=== PATIENT | male | born 1955 | race Caucasian/White ===

== ENCOUNTER 2020-09-13 11:28 | Outpatient (CLI) | payer OTHER ==
--- NOTE | 2020-09-13 11:57 | XRAY Report ---
PROCEDURE: Chest 2 View X-Ray INDICATIONS: Cough TECHNIQUE: 2 view(s) of the chest. COMPARISON: 11/04/2014 CT angiogram chest FINDINGS: Surgical changes and devices: None. Lungs and pleura: No pleural effusions or pneumothorax. Lungs are clear. Mediastinum: Mediastinal contours are normal. Heart size is normal. Bones and chest wall: No suspicious bony abnormalities. Soft tissues appear unremarkable. IMPRESSION: No acute cardiopulmonary process demonstrated radiographically. Reviewed by: Gavin Silver MD on 09/13/2020 11:56 AM PDT Approved by: Gavin Silver MD on 09/13/2020 11:56 AM PDT Station ID: [id number]
== END 2020-09-13 11:29 | disposition home or self-care (01) ==
LOC: DI.N 11:28
PROVIDERS: ATTEND Physician Assistant
DX: R05 Cough (principal); R07.9 Chest pain, unspecified; R06.02 Shortness of breath; Z87.891 Personal history of nicotine dependence

== ENCOUNTER 2021-09-22 10:41 | Outpatient (CLI) | payer MEDICARE ==
--- NOTE | 2021-09-22 13:42 | Ultrasound Report ---
PROCEDURE: Aorta Screening INDICATIONS: SCREENING FOR AAA TECHNIQUE: Real time scanning was performed of the aorta and iliac arteries, with image documentatio n. COMPARISON: CT abdominal/pelvic angiogram, 11/04/2014. FINDINGS: Aorta: Proximal aortic diameter measures 2.9 x 2.9 cm. Mid-aorta measures 2.1 x 2.2 cm. Distal aor tic diameter is 2.0 x 2.1 cm. There are calcified plaques in the abdominal aorta. Iliac arteries: Right common iliac artery measures 1.3 x 1.1 cm. Left common iliac artery measures 1.3 x 1.3 cm. IMPRESSION: Mild abdominal aortic ectasia. A follow-up ultrasound is recommended in 5 years. Reviewed by: Isaac Smith MD on 09/22/2021 1:40 PM PDT Approved by: Isaac Smith MD on 09/22/2021 1:40 PM PDT Station ID: [id number]
== END 2021-09-22 10:42 | disposition home or self-care (01) ==
LOC: DI 10:41
PROVIDERS: ATTEND Physician Assistant
DX: Z13.6 Encounter for screening for cardiovascular disorders (principal); I77.811 Abdominal aortic ectasia

== ENCOUNTER 2022-03-30 11:00 | Outpatient (CLI) | payer MEDICARE | END 2022-03-30 23:59 | disposition short-term general hospital (02) | LOC: EMS 11:00 | DX: R06.02 Shortness of breath (principal) | CPT/HCPCS: A0425; A0427 ==

== ENCOUNTER 2022-05-01 22:00 | Outpatient (CLI) | payer MEDICARE | END 2022-05-01 23:59 | disposition short-term general hospital (02) | LOC: EMS 22:00 | DX: R55 Syncope and collapse (principal); R11.2 Nausea with vomiting, unspecified; I95.9 Hypotension, unspecified | CPT/HCPCS: A0425; A0427 ==

== ENCOUNTER 2022-07-22 11:01 | Outpatient (CLI) | payer MEDICARE ==
--- NOTE | 2022-07-22 13:30 | XRAY Report ---
PROCEDURE: Chest 2 View X-Ray INDICATIONS: ASTHMA TECHNIQUE: 2 views of the chest were acquired. COMPARISON: 09/13/2020 FINDINGS: Surgical changes and devices: None. Lungs and pleura: No pleural effusions or pneumothorax. Lungs are clear. Mediastinum: Mediastinal contours are normal. Heart size is normal. Bones and chest wall: No suspicious bony abnormalities. Soft tissues appear unremarkable. IMPRESSION: No acute cardiopulmonary abnormality. Reviewed by: Zeferino Pope MD on 07/22/2022 1:28 PM PDT Approved by: Zeferino Pope MD on 07/22/2022 1:28 PM PDT Station ID: [id number]
== END 2022-07-22 11:02 | disposition home or self-care (01) ==
LOC: DI 11:01
PROVIDERS: ATTEND Student in an Organized Health Care Education/Training Program
DX: J45.909 Unspecified asthma, uncomplicated (principal); R19.7 Diarrhea, unspecified; R97.8 Other abnormal tumor markers

== ENCOUNTER 2022-07-29 09:42 | Outpatient (CLI) | payer MEDICARE ==
[2022-07-29 10:07] LABS: ALBUMIN 4.5 g/dL (3.2-5.5); ALBUMIN/GLOBULIN RATIO 1.4 (1.0-2.2); BILIRUBIN,TOTAL 0.5 mg/dL (0.2-1.0); CALCIUM 9.4 mg/dL (8.5-10.3); CREATININE 0.8 mg/dL (0.6-1.2); POTASSIUM 4.1 mmol/L (3.5-5.0); TOTAL PROTEIN 7.7 g/dL (6.7-8.2)
== END 2022-07-29 09:43 | disposition home or self-care (01) ==
LOC: LAB 09:42
PROVIDERS: ATTEND Student in an Organized Health Care Education/Training Program
DX: R19.7 Diarrhea, unspecified (principal)
CPT/HCPCS: 36415; 80053

== ENCOUNTER 2022-07-29 09:44 | Outpatient (CLI) | payer MEDICARE ==
[2022-07-29] MEDS ORDERED: iohexoL-300 100 ML VIAL ONE (10:04)
--- NOTE | 2022-07-29 17:01 | CT Report ---
PROCEDURE: ABDOMEN/PELVIS W INDICATIONS: DIARRHEA, ELEVATED CHROMOGRANIN A CONTRAST: : 100ml Omnipaque 300 TECHNIQUE: After the administration of oral and intravenous contrast, 5 mm thick sections acquired from the diap hragms to the symphysis. 5 mm thick coronal and sagittal reformats were acquired. For radiation dos e reduction, the following was used: automated exposure control, adjustment of mA and/or kV accordin g to patient size. COMPARISON: CT 10/05/2014 FINDINGS: Image quality: Excellent. Lung bases and heart: Unremarkable. Liver: Hepatic steatosis. Edge blunting. Gallbladder and biliary tree: Unremarkable. No biliary dilation. Spleen: Unremarkable. Pancreas: Unremarkable. Adrenals: Unremarkable. Kidneys: Unremarkable. Bowel and peritoneum: No bowel distension. Appendix is surgically absent. No pathologic free fluid. F atty replacement within the wall of the ascending colon, with associated wall thickening. Lymph nodes: No central or retroperitoneal adenopathy. Vessels: Unremarkable. PELVIS Reproductive organs: Unremarkable. Fluid within the scrotum. Bladder and ureters: Unremarkable. Lymph nodes: Unremarkable. Bones: No aggressive osseous abnormality. Avascular necrosis of the hips, without cortical collapse. Other: Fat within the inguinal canals, left greater right. IMPRESSION: No distinct evidence of a neuroendocrine malignancy. Marked hepatic steatosis with edge blunting, questionable early cirrhosis. Fat replacement within the wall of the ascending and transverse colon. Findings can be seen in the se tting of portal colopathy versus fat stranding. Avascular necrosis of the hips. Fluid within the scrotum. Reviewed by: Janes Cancino on 07/29/2022 5:00 PM PDT Approved by: Janes Cancino on 07/29/2022 5:00 PM PDT Station ID: [id number]
[2022-07-29] MEDS: iohexoL-300 100 ML VIAL IVP ONE (17:19)
[2022-07-29] MEDS: DIATRIZOATE MEGLU/DIATRIZO SOD 30 ML BOTTLE PO ONE (17:20)
== END 2022-07-29 09:45 | disposition home or self-care (01) ==
LOC: DI 09:44
PROVIDERS: ATTEND Student in an Organized Health Care Education/Training Program
DX: R97.8 Other abnormal tumor markers (principal); R19.7 Diarrhea, unspecified; K76.0 Fatty (change of) liver, not elsewhere classified; M87.9 Osteonecrosis, unspecified
CPT/HCPCS: 36415; 74177; 80053; Q9963; Q9967